=== PATIENT | female | born 1985 | race African-American/Black ===

== ENCOUNTER → 2017-06-05 | Outpatient (CLI) | payer BC | END | disposition home or self-care (01) | LOC: LAB 07:06 | PROVIDERS: ATTEND Specialist | DX: R10.9 Unspecified abdominal pain (principal) | CPT/HCPCS: 36415; 82565; 84520 ==

== ENCOUNTER 2017-09-28 08:24 | Inpatient (IN) | payer BC ==
[2017-09-25 11:39] LABS: Basophils # (auto) 0.1 uL; Basophils % (auto) 0.9 % (0.0-2.0); Eosinophils # (auto) 0.1 uL; Hematocrit 46.2 % (36.0-46.0); Hemoglobin 15.5 g/dL (12.2-16.2); Lymphocytes # (auto) 1.6 uL; Lymphocytes % (auto) 29.8 % (10.0-50.0); Mean Corpuscular Hemoglobin 29.5 pg (28.0-32.0); Mean Corpuscular Hgb Conc. 33.5 g/dL (32.0-36.0); Mean Corpuscular Volume 88.1 fL (80.0-100.0); Monocytes # (auto) 0.3 uL; Monocytes % (auto) 5.1 % (0.0-12.0); Neutrophils # (auto) 3.5 uL; Neutrophils % (auto) 63.2 % (37.0-80.0); Nucleated Red Blood Cells % 0.2 %; Platelet Count (auto) 246 10^3/uL (140-450); Red Cell Distribution Width 13.2 % (11.8-14.3); White Blood Cell 5.5 10^3/uL (4.4-10.8)
[2017-09-25 11:41] LABS: Urine Bilirubin Negative (Negative); Urine Blood TRACE /uL (Negative); Urine Color Yellow (Yellow); Urine Glucose Normal (Normal); Urine Ketone Negative (Negative); Urine Nitrite Negative (Negative); Urine Urobilinogen Normal (Negative); Urine pH 5.5 (5.0-8.0)
[2017-09-25 11:55] LABS: INR 1.01 (0.9-1.15); Partial Thromboplastin Time 31.5 sec (22.64-33.71)
[2017-09-25 12:00] LABS: Albumin 4.4 g/dL (3.4-5.0); BUN/Creatinine Ratio 10.8; Bilirubin, Total 0.5 mg/dL (0.2-1.0); Calcium 9.3 mg/dL (8.5-10.1); Potassium 3.6 mmol/L (3.5-5.1); Total Protein 8.9 g/dL (6.4-8.2)
[~2017-09-28] VITALS: Ht 162.6 cm; Wt 71.0 kg
[~2017-09-28 08:24] MED LIST: AMLO5TAB2 PO
[2017-09-28] MEDS ORDERED: fentaNYL CITRATE 100 MCG/2 ML VL ONE ×2 (10:55→11:01)
[2017-09-28] MEDS ORDERED: MIDAZOLAM HCL 1MG/1ML-2 ML VIAL ONE (10:56)
[2017-09-28] MEDS ORDERED: PROPOFOL 10 MG/ML 20 ML IV ONE ×2 (10:58→10:59)
[2017-09-28] MEDS ORDERED: DEXAMETHASONE SOD PHOS 10MG/1ML VIAL INJ ONE (10:58)
[2017-09-28] MEDS ORDERED: MEPERIDINE HCL (50 MG/ML) 1 ML VIAL ONE (10:59)
[2017-09-28] MEDS ORDERED: KETOROLAC TROMETH 30 MG/ML 1ML VIAL IV ONE ×2 (12:20→12:30)
[2017-09-28] MEDS ORDERED: HYDROmorphone HCL 2 MG/ML VL IV PRN ×2 (12:30→14:00)
[2017-09-28] MEDS ORDERED: MIDAZOLAM HCL 1MG/1ML-2 ML VIAL IV PRN (12:30)
[2017-09-28] MEDS ORDERED: ePHEDrine SULFATE 50 MG/ML AMP IV PRN (12:30)
[2017-09-28] MEDS ORDERED: ONDANSETRON HCL 4 MG/2 ML VIAL IV ONE (12:30)
[2017-09-28] MEDS ORDERED: LABETALOL HCL 5 MG/ML 4ML SYRINGE IV PRN (12:30)
[2017-09-28] MEDS ORDERED: MORPHINE SULF INJ 2 MG/ML SYRINGE 1ML IV PRN (12:30)
[2017-09-28] MEDS ORDERED: ceFAZolin 1GM/50ML 50 ML IV ONE (12:56)
[2017-09-28] MEDS ORDERED: ONDANSETRON HCL 4 MG/2 ML VIAL IV PRN (14:00)
[2017-09-28] MEDS ORDERED: KETOROLAC TROMETH 30 MG/ML 1ML VIAL IV PRN (14:00)
[2017-09-28] MEDS: KETOROLAC TROMETH 30 MG/ML 1ML VIAL IV SCH ×2 (14:30→18:00)
[2017-09-28 14:45] LABS: Basophils # (auto) 0 uL; Basophils % (auto) 0.6 % (0.0-2.0); Eosinophils # (auto) 0.1 uL; Eosinophils % (auto) 1.1 % (0.0-7.0); Hematocrit 36.4 % (36.0-46.0); Hemoglobin 12.1 g/dL (12.2-16.2); Lymphocytes % (auto) 25.5 % (10.0-50.0); Mean Corpuscular Hemoglobin 29.3 pg (28.0-32.0); Mean Corpuscular Hgb Conc. 33.3 g/dL (32.0-36.0); Mean Corpuscular Volume 88.2 fL (80.0-100.0); Mean Platelet Volume 9.5 fL (6.9-10.8); Monocytes # (auto) 0.4 uL; Neutrophils # (auto) 5.3 uL; Neutrophils % (auto) 67.8 % (37.0-80.0); Nucleated Red Blood Cells % 0.1 %; Platelet Count (auto) 180 10^3/uL (140-450); Red Cell Distribution Width 13.1 % (11.8-14.3); White Blood Cell 7.8 10^3/uL (4.4-10.8)
[2017-09-28] MEDS ORDERED: HYDROmorphone HCL 2 MG/ML VL ONE (16:00)
[2017-09-28] MEDS: HYDROmorphone HCL 2 MG/ML VL IV PRN ×2 (16:12→21:13)
[2017-09-28 17:00] VITALS: BP 140/78
[2017-09-28] MEDS: LACTATED RINGER'S 1,000 ML IV SCH (17:39)
[2017-09-28] MEDS: ceFAZolin 1GM/50ML 50 ML IV SCH (20:21)
[2017-09-28 22:00] VITALS: BP 132/91
[2017-09-29] MEDS: LACTATED RINGER'S 1,000 ML IV SCH ×4 (00:01→17:48)
[2017-09-29] MEDS: HYDROmorphone HCL 2 MG/ML VL IV PRN ×2 (01:29→14:58)
[2017-09-29] MEDS: ceFAZolin 1GM/50ML 50 ML IV SCH ×2 (04:18→10:52)
[2017-09-29 05:00] VITALS: BP 118/76
[2017-09-29] MEDS: KETOROLAC TROMETH 30 MG/ML 1ML VIAL IV SCH ×5 (05:39→23:53)
[2017-09-29 06:32] LABS: Basophils # (auto) 0 uL; Basophils % (auto) 0.1 % (0.0-2.0); Eosinophils # (auto) 0 uL; Eosinophils % (auto) 0.1 % (0.0-7.0); Hematocrit 36.4 % (36.0-46.0); Hemoglobin 12.1 g/dL (12.2-16.2); Lymphocytes # (auto) 1.4 uL; Lymphocytes % (auto) 10.7 % (10.0-50.0); Mean Corpuscular Hemoglobin 29.3 pg (28.0-32.0); Mean Corpuscular Hgb Conc. 33.4 g/dL (32.0-36.0); Mean Corpuscular Volume 87.9 fL (80.0-100.0); Mean Platelet Volume 9.8 fL (6.9-10.8); Monocytes # (auto) 0.7 uL; Monocytes % (auto) 5.3 % (0.0-12.0); Neutrophils # (auto) 10.8 uL; Neutrophils % (auto) 83.8 % (37.0-80.0); Platelet Count (auto) 201 10^3/uL (140-450); Red Cell Distribution Width 13.1 % (11.8-14.3); White Blood Cell 12.9 10^3/uL (4.4-10.8)
[2017-09-29 08:49] VITALS: BP 122/83
[2017-09-29] MEDS ORDERED: HYDROcodone-ACET 5/325MG TAB PO PRN (09:00)
[2017-09-29] MEDS: HYDROcodone-ACET 5/325MG TAB PO PRN ×2 (09:42→13:53)
[2017-09-29] MEDS: SIMETHICONE 80 MG CHEWABLE TABLET PO SCH ×5 (10:09→21:45)
[2017-09-29] MEDS: amLODIPine BESYLATE 5 MG TAB PO SCH (10:09)
[2017-09-29 13:07] VITALS: BP 129/82
[2017-09-29 16:57] VITALS: BP 148/95
[2017-09-29 22:04] VITALS: BP 130/84
[2017-09-30] MEDS: HYDROmorphone HCL 2 MG/ML VL IV PRN ×3 (03:15→17:33)
[2017-09-30 04:29] VITALS: BP 130/78
[2017-09-30] MEDS: KETOROLAC TROMETH 30 MG/ML 1ML VIAL IV SCH ×3 (06:00→18:15)
[2017-09-30 06:02] LABS: Albumin 3.2 g/dL (3.4-5.0); BUN/Creatinine Ratio 6.5; Bilirubin, Total 0.3 mg/dL (0.2-1.0); Calcium 8.5 mg/dL (8.5-10.1); Potassium 3.6 mmol/L (3.5-5.1); Total Protein 6.6 g/dL (6.4-8.2)
[2017-09-30] MEDS: LACTATED RINGER'S 1,000 ML IV SCH ×3 (06:05→19:21)
[2017-09-30] MEDS: SIMETHICONE 80 MG CHEWABLE TABLET PO SCH ×4 (06:05→21:41)
[2017-09-30] MEDS: amLODIPine BESYLATE 5 MG TAB PO SCH (09:50)
[2017-09-30] MEDS: VALACYCLOVIR 1000 MG PO SCH ×2 (10:00→21:43)
[2017-09-30 10:07] VITALS: BP 129/83
[2017-09-30 11:57] VITALS: BP 142/87
[2017-09-30 16:34] VITALS: BP 136/84
[2017-09-30] MEDS ORDERED: IBUPROFEN 800 MG TAB PO PRN (17:30)
[2017-09-30] MEDS: PIPERACILLIN-TAZOB 3.375GM 50 ML IV SCH (18:15)
[2017-09-30 21:38] VITALS: BP 135/84
[2017-10-01] MEDS: PIPERACILLIN-TAZOB 3.375GM 50 ML IV SCH ×2 (00:13→06:04)
[2017-10-01] MEDS: KETOROLAC TROMETH 30 MG/ML 1ML VIAL IV SCH ×2 (00:19→06:04)
[2017-10-01] MEDS: LACTATED RINGER'S 1,000 ML IV SCH ×2 (01:54→06:04)
[2017-10-01] MEDS: HYDROmorphone HCL 2 MG/ML VL IV PRN ×2 (04:16→16:40)
[2017-10-01 04:54] VITALS: BP 129/69
[2017-10-01] MEDS: SIMETHICONE 80 MG CHEWABLE TABLET PO SCH (06:04)
[2017-10-01 08:00] VITALS: BP 104/68
[2017-10-01 09:20] VITALS: BP 118/82
[2017-10-01 09:38] VITALS: BP 118/82
[2017-10-01] MEDS: VALACYCLOVIR 1000 MG PO SCH (10:00)
[2017-10-01] MEDS: amLODIPine BESYLATE 5 MG TAB PO SCH (10:24)
== END 2017-10-01 12:27 | disposition home or self-care (01) | DRG 743 ==
LOC: SUR 08:24 → CENTRAL 08:25
PROVIDERS: ADMIT Specialist; ATTEND Specialist
PROC: 0UT10ZZ Resection of Left Ovary, Open Approach (ICD-10-PCS; 2017-09-28)
PROC: 0UT70ZZ Resection of Bilateral Fallopian Tubes, Open Approach (ICD-10-PCS; 2017-09-28)
PROC: 0UT90ZZ Resection of Uterus, Open Approach (ICD-10-PCS; principal; 2017-09-28 12:05)
DX: D25.9 Leiomyoma of uterus, unspecified (principal); G89.29 Other chronic pain; N80.9 Endometriosis, unspecified; N94.10 Unspecified dyspareunia; Z90.49 Acquired absence of other specified parts of digestive tract; K42.9 Umbilical hernia without obstruction or gangrene; N83.202 Unspecified ovarian cyst, left side; I10 Essential (primary) hypertension
CPT/HCPCS: 36415; 80053; 81003; 84702; 85025; 85610; 85730; 86850; 86900; 86901; J0690; J1100; J1885; J2250; J2405; J2543; J2704